=== PATIENT | female | born 1955 | race Caucasian/White ===

== ENCOUNTER → 2018-10-04 | Outpatient (CLI) | payer BC | END | disposition home or self-care (01) | LOC: CFH 10:27 | PROVIDERS: ATTEND Family Medicine | DX: Z12.31 Encounter for screening mammogram for malignant neoplasm of breast (principal) | CPT/HCPCS: 77067 ==

== ENCOUNTER → 2021-01-04 | Outpatient (CLI) | payer MEDICARE ==
[~2021-01-04] MED LIST: BIOT25005 PO; CHOL10003 PO; MULT-90 PO; POTA99TA14 PO; ZINC50TA44 PO
== END | disposition home or self-care (01) ==
LOC: STAR 09:46
PROVIDERS: ATTEND Orthopaedic Surgery
DX: Z01.818 Encounter for other preprocedural examination (principal); S83.241A Other tear of medial meniscus, current injury, right knee, initial encounter; M25.561 Pain in right knee; I49.3 Ventricular premature depolarization; X58.XXXA Exposure to other specified factors, initial encounter; Y93.89 Activity, other specified; Y92.89 Other specified places as the place of occurrence of the external cause; Y99.8 Other external cause status; Z20.822 Contact with and (suspected) exposure to COVID-19
CPT/HCPCS: 93005; U0003

== ENCOUNTER 2021-01-08 06:45 | Day surgery (SDC) | payer MEDICARE ==
[~2021-01-08] VITALS: Ht 160 cm; Wt 61.8 kg
[2021-01-08] MEDS ORDERED: EPINEPHRINE 1 MG/ML, 1ML ONE (06:54)
[2021-01-08] MEDS ORDERED: ROPIvacaine/PF 0.5%, 30 ML ONE (06:54)
[2021-01-08] MEDS ORDERED: LIDOCAINE/PF 1%, 30ML ONE (06:54)
[2021-01-08] MEDS ORDERED: CHLORHEXIDINE 15 ML UDC ONE (07:21)
[2021-01-08] MEDS ORDERED: LIDOCAINE-MPF 1%, 2ML INFIL ONE (07:30)
[2021-01-08] MEDS ORDERED: CHLORHEXIDINE 15 ML UDC MM ONE (07:30)
[2021-01-08] MEDS ORDERED: LACTATED RINGERS 1,000 ML IV SCH (07:30)
[2021-01-08] MEDS ORDERED: FENTANYL PF 250 MCG/5ML ONE (07:48)
[2021-01-08] MEDS ORDERED: MIDAZOLAM 1 MG/ML, 2ML ONE (07:48)
[2021-01-08] MEDS ORDERED: PROPOFOL 10 MG/ML, 20ML ONE (07:49)
[2021-01-08] MEDS ORDERED: DEXAMETHASONE 4 MG/ML, 1ML ONE (07:51)
[2021-01-08] MEDS ORDERED: ONDANSETRON 2MG/ML, 2ML ONE (07:51)
[2021-01-08] MEDS ORDERED: CEFAZOLIN 1,000 MG ONE (08:11)
[2021-01-08] MEDS ORDERED: KETOROLAC 30 MG/1 ML ONE (08:15)
[2021-01-08] MEDS ORDERED: PROMETHAZINE 25 MG/ML, 1ML IVPush PRN (08:30)
[2021-01-08] MEDS ORDERED: ACETAMINOPHEN 325 MG TABLET PO PRN (08:30)
[2021-01-08] MEDS ORDERED: ONDANSETRON 2MG/ML, 2ML IVPush PRN (08:30)
[2021-01-08] MEDS ORDERED: OXYcodone 5 MG/5 ML ORAL.SOL UDC PO PRN (08:30)
[2021-01-08] MEDS ORDERED: HYDROmorphone 1 MG/ML, 1ML INJ IVPush PRN (08:30)
[2021-01-08] MEDS ORDERED: MEPERIDINE/PF 25MG/0.5ML IVPush PRN (08:30)
[2021-01-08] MEDS ORDERED: LABETALOL 5MG/ML, 20ML IV PRN (08:30)
[2021-01-08] MEDS ORDERED: hydrALAzine 20 MG/ML, 1ML IV PRN (08:30)
[2021-01-08] MEDS ORDERED: FENTANYL PF 100 MCG/2ML IV PRN (08:30)
[2021-01-08] MEDS ORDERED: ACETAMINOPHEN 650 MG/20.3 ML UDC ONE (09:04)
[2021-01-08] MEDS ORDERED: FENTANYL PF 100 MCG/2ML ONE (09:04)
[2021-01-08] MEDS ORDERED: OXYcodone 5 MG/5 ML ORAL.SOL UDC ONE (09:06)
== END 2021-01-08 10:37 | disposition home or self-care (01) ==
LOC: OUT 06:45
PROVIDERS: ATTEND Orthopaedic Surgery
DX: M25.561 Pain in right knee (principal); M23.231 Derangement of other medial meniscus due to old tear or injury, right knee; M23.261 Derangement of other lateral meniscus due to old tear or injury, right knee; M65.861 Other synovitis and tenosynovitis, right lower leg; Z79.899 Other long term (current) drug therapy; Z98.890 Other specified postprocedural states; Z72.89 Other problems related to lifestyle
CPT/HCPCS: 29880; J0171; J0690; J1100; J1885; J2250; J2405; J2704; J2795; J3010; J7120